=== PATIENT | male | born 1945 | race Caucasian/White ===

== ENCOUNTER 2019-12-26 08:23 | Outpatient (CLI) | payer OTHER, SELFPAY ==
--- NOTE | 2019-12-26 08:36 | USCV_ITS ---
Hugh Armas Age: 74 Gender: M : 1945 Exam Date: 12/26/2019 09:01 Ordering Phys: Hira Browning MD Technologist: Sayda Dawkins Exam [place]: [facility] [place] Ind[place]: CAD BP: / HR: 48 Rhythm: Sinus Technical Quality: Adequate MEASUREMENTS (Male / Female) Normal Values 2D ECHO LV Diastolic Diameter PLAX 3.1 cm 4.2 - 5.9 / 3.9 - 5.3 cm LV Systolic Diameter PLAX 2.4 cm LV Chamber Size 4.0 cm IVS Diastolic Thickness 1.3 cm 0.6 - 1.0 / 0.6 - 0.9 cm IVS Systolic Thickness 1.5 cm LVPW Diastolic Thickness 1.5 cm 0.6 - 1.0 / 0.6 - 0.9 cm LVPW Systolic Thickness 1.1 cm RV Chamber Size 2.6 cm LVOT Diameter 2.1 cm LV Ejection Fraction 2D Teich 44.6 % LV Ejection Fraction MOD 2C 31.6 % LV Ejection Fraction 2C AL 30.7 % LA Diameter 3.0 cm LA Width 3.3 cm LA Height 4.6 cm RA Width 2.7 cm RA Height 3.4 cm Aorta at Sinotubular Diameter 3.7 cm M-MODE LV Diastolic Diameter MM 4.2 cm 4.2 - 5.9 / 3.9 - 5.3 cm LV Systolic Diameter MM 2.8 cm LV Ejection Fraction MM Teich 62.7 % IVS Diastolic Thickness MM 0.8 cm 0.6 - 1.0 / 0.6 - 0.9 cm IVS Systolic Thickness MM 1.3 cm LVPW Diastolic Thickness MM 0.9 cm 0.6 - 1.0 / 0.6 - 0.9 cm LVPW Systolic Thickness MM 1.6 cm RV Diastolic Diameter MM 1.1 cm Aortic Annulus Diameter 3.6 cm LA Ao Ratio MM 1.0 MV E Point Septal Separation 0.8 cm DOPPLER AV Peak Velocity 130.0 cm/s LVOT Peak Velocity 84.0 cm/s AV Area Cont Eq vti 2.2 cm squared AV Area Cont Eq pk 2.2 cm squared MV Area PHT 2.2 cm squared Mitral E to A Ratio 1.3 MV E' Velocity 46.5 cm/s Mitral E to MV E' Ratio 9.2 Mitral E to LV E' Lateral Ratio 7.8 Mitral E to LV E' Septal Ratio 11.4 TR Peak Velocity 188.9 cm/s TR Peak Gradient 14.3 mmHg TR Mean Velocity 137.1 cm/s TR Mean Gradient 8.4 mmHg TR Velocity Time Integral 56.1 cm TV Peak E Velocity 61.0 cm/s Right Atrial Pressure 3.0 mmHg Pulmonary Artery Systolic Pressu 17.3 mmHg PV Peak Velocity 61.0 cm/s RV Acceleration Time 0.2 s RV Ejection Time 0.4 s RV AcT/ET 0.5 FINDINGS Left Ventricle Normal LV size with borderline low ejection fraction of 50%. Mild diffuse hypokinesia of the septum and anteroseptal segments. Right Ventricle The right ventricle is normal in size and function. Right Atrium The right atrium is normal in size. Left Atrium The left atrium is normal in size. Mitral Valve Thickened mitral valve. Aortic Valve Thickened aortic valve. Trace aortic valve regurgitation. Tricuspid Valve No gross abnormalities noted Pulmonic Valve Structurally normal pulmonic valve without significant stenosis. There is no pulmonic regurgitation. Pericardium Normal pericardium without effusion. Aorta Mildly dilated ascending aorta. Intimal plaques in the ascending aorta CONCLUSIONS Normal LV size with borderline low ejection fraction of 50%. Mild diffuse hypokinesia of the septum and anteroseptal segments. Thickened aortic valve. Trace aortic valve regurgitation. Mildly dilated ascending aorta. Minimal plaques in the ascending aorta. There is no pericardial effusion. There are no intracardiac masses. No previous study is available for comparison. Dr Etta Vincent MD FAC (Electronically Signed) Final Date: 26 December 2019 17:39 S
[2019-12-26 10:10] LABS: Add Urine Microscopic? NO
[2019-12-26 10:17] LABS: Bilirubin Urine Neg (Negative); Blood Urine Neg (Negative); Glucose Urine UA Norm (Normal); Ketones Urine Negative (Negative); Leukocyte Esterase Urine Negative (Negative); Nitrate Urine Negative (Negative); Protein Urine Neg (Negative); Specific Gravity, Urine 1.015 (1.005-1.030); Urine Appearance Clear (CLEAR); Urine Color Straw (Yellow); Urobilinogen Urine Norm (Negative)
[2019-12-26 10:30] LABS: Alanine Aminotransferase 25 U/L (0-41); Alkaline Phosphatase 58 IU/L (40-130); Anion Gap 11.6 (5-19); Aspartate Amino Transferase 34 U/L (0-40); Blood Urea Nitrogen 28 mg/dL (8-23); Calcium 9.4 mg/dL (8.5-10.5); Carbon Dioxide 22 mmol/L (22-29); Chloride 104 mmol/L (98-107); Globulin 2.7 g/dL (1.3-4.6); Glucose 82 mg/dL (65-115); Osmolality Calculated 281 mOsm/kg (285-295); Potassium 4.6 mmol/L (3.5-5.1); Sodium 133 mmol/L (136-145); Total Bilirubin 0.2 mg/dL (0.15-1.2); Total Protein 6.7 g/dL (6.6-8.7)
== END 2019-12-26 08:24 | disposition home or self-care (01) ==
LOC: US 08:26
PROVIDERS: PCP Emergency Medicine Emergency Medical Services; Visit Provider Orthopaedic Surgery
DX: I25.10 Atherosclerotic heart disease of native coronary artery without angina pectoris (principal); I12.9 Hypertensive chronic kidney disease with stage 1 through stage 4 chronic kidney disease, or unspecified chronic kidney disease
CPT/HCPCS: 36415; 80053; 81003; 93306

== ENCOUNTER 2020-01-05 12:10 | Outpatient (RCR) | payer OTHER, SELFPAY | END 2020-02-03 23:59 | disposition home or self-care (01) | LOC: CR 12:10 | PROVIDERS: PCP Emergency Medicine Emergency Medical Services; Referring Provider Internal Medicine Interventional Cardiology; Visit Provider Internal Medicine Interventional Cardiology | DX: Z95.5 Presence of coronary angioplasty implant and graft (principal) | CPT/HCPCS: 93798 ==

== ENCOUNTER 2020-02-04 11:02 | Outpatient (RCR) | payer OTHER, SELFPAY | END 2020-03-05 23:59 | disposition home or self-care (01) | LOC: CR 11:02 | PROVIDERS: PCP Emergency Medicine Emergency Medical Services; Referring Provider Internal Medicine Interventional Cardiology; Visit Provider Internal Medicine Interventional Cardiology | DX: Z95.5 Presence of coronary angioplasty implant and graft (principal) | CPT/HCPCS: 93798 ==

== ENCOUNTER 2020-03-10 09:45 | Outpatient (RCR) | payer OTHER, SELFPAY | END 2020-04-05 23:59 | disposition home or self-care (01) | LOC: CR 09:45 | PROVIDERS: PCP Emergency Medicine Emergency Medical Services; Referring Provider Internal Medicine Interventional Cardiology; Visit Provider Internal Medicine Interventional Cardiology | DX: Z95.5 Presence of coronary angioplasty implant and graft (principal) | CPT/HCPCS: 93798 ==